=== PATIENT | male | born 1945 | race Caucasian/White ===

== ENCOUNTER 2023-02-26 11:10 | Outpatient (OUT) | payer MEDICARE, SELFPAY ==
--- NOTE | 2023-02-26 11:40 | XR_ITS ---
The [address] [address] Patient Name: CHERI LOJA MRN: [id number] date: 1945 Sex: M Assigned Patient Location: LAB Current Patient Location: LAB Accession/Order Number: [id number] Exam Date: 02/26/2023 11:34 Report Date: 02/26/2023 12:01 At the request of: BRITTANIE GRAY Procedure: XR abdomen 1V EXAM: XR abdomen 1V HISTORY: Kidney Stone COMPARISON: None. TECHNIQUE: AP view of the abdomen. FINDINGS: Nonobstructive bowel gas pattern is noted. There is a 3 mm calculus projecting in the superior aspect of the right kidney. The osseous structures are intact. XR/XR abdomen 1V IMPRESSION: Nonobstructive bowel gas pattern. Punctate right nephrolithiasis. Electronically authenticated by: ANTIONETTE REEVES Date: 02/26/2023 12:01
[2023-02-26 13:20] LABS: Prostate Specific Antigen Dx 0.75 ng/mL (<=4.00)
== END 2023-02-26 11:11 | disposition home or self-care (01) ==
LOC: LAB 11:15
PROVIDERS: Visit Provider Urology
DX: N20.0 Calculus of kidney (principal)
CPT/HCPCS: 36415; 74018; 84153

== ENCOUNTER 2024-03-04 12:57 | Outpatient (OUT) | payer MEDICARE, SELFPAY ==
--- NOTE | 2024-03-04 13:02 | XR_ITS ---
The [address] [address] Patient Name: CHERI LOJA MRN: [id number] date: 1945 Sex: M Assigned Patient Location: [facility] Current Patient Location: Accession/Order Number: [id number] Exam Date: 03/04/2024 13:15 Report Date: 03/06/2024 05:08 At the request of: BRITTANIE GRAY Procedure: XR abdomen 1V EXAMINATION: XR abdomen 1V HISTORY: Kidney Stone COMPARISON: XR abdomen 02/26/2023 FINDINGS: KIDNEY/URETER - RIGHT: Tiny calcification within right upper quadrant, possibly within the kidney. KIDNEY/URETER - LEFT: No visible renal or ureteral calcifications. PELVIS: No appreciable ureteral stones. Stable pelvic calcifications compatible with phleboliths. BOWEL: No abnormal dilation or deviation. BONES: No acute abnormality. OTHER: Negative. No abnormal gaseous collections. XR/XR abdomen 1V IMPRESSION: 1. Suspect right nephrolithiasis. Electronically authenticated by: GERRY DUEÑAS Date: 03/06/2024 05:08
== END 2024-03-04 12:58 | disposition home or self-care (01) ==
LOC: RAD 12:59
PROVIDERS: Visit Provider Urology
DX: N20.0 Calculus of kidney (principal)
CPT/HCPCS: 74018